=== PATIENT | male | born 1995 | race Caucasian/White ===

== ENCOUNTER 2022-04-09 08:11 | Emergency (ER) | payer SELFPAY ==
[~2022-04-09] VITALS: Ht 175.3 cm; Wt 77.1 kg
[2022-04-09] MEDS ORDERED: ASPIRIN 81 MG CHEW (CHILDREN'S ASA) PO ONE (08:30)
[2022-04-09 08:42] LABS: BASOPHILS % (AUTO) 0 % (0-10); EOSINOPHILS # (AUTO) 0.1 10^3/uL (0.0-0.3); EOSINOPHILS % (AUTO) 1 % (0-10); HEMATOCRIT 43 % (40-54); HEMOGLOBIN 15.4 g/dL (13.3-17.7); LYMPHOCYTES # (AUTO) 1.4 10^3/uL (1.0-4.0); LYMPHOCYTES % (AUTO) 20 % (12-44); MEAN CORPUSCULAR HEMOGLOBIN 33 pg (25-34); MEAN CORPUSCULAR HGB CONC 36 g/dL (32-36); MEAN CORPUSCULAR VOLUME 92 fL (80-99); MEAN PLATELET VOLUME 10.2 fL (9.0-12.2); MONOCYTES # (AUTO) 0.5 10^3/uL (0.0-1.0); MONOCYTES % (AUTO) 8 % (0-12); NEUTROPHILS % (AUTO) 71 % (42-75); PLATELET COUNT 218 10^3/uL (130-400)
--- NOTE | 2022-04-09 08:49 | Diagnostic Imaging Report ---
INDICATION: Chest pain. FINDINGS: The lungs are clear. No failure, effusion, or pneumothorax. IMPRESSION: No acute appearing abnormality. Dictated by: Dictated on workstation # [id number]
[2022-04-09 08:54] LABS: PROTHROMBIN TIME PATIENT 13.4 SEC (12.2-14.7)
--- NOTE | 2022-04-09 08:54 | ED Chest Pain ---
General Chief Complaint: Chest Pain Stated Complaint: CHEST PAINS Source: patient History of Present Illness Date Seen by Provider: Apr 09, 2022 Time Seen by Provider: 08:24 Initial Comments PT WALKS IN ON HIS OWN. 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 NO DIFFERENT TODAY, HAS NOT SOUGHT CARE UNTIL TODAY, SYMPTOMS NO DIFFERENT TODAY HAS NOT TAKEN ANYTHING FOR PAIN HE HAS OCCASIONAL SWEATS WITH THE PAIN NO SHORTNESS OF BREATH NO NAUSEA/VOMITING NO SWELLING IN LEGS/FEET OR PAIN IN CALVES NO FEVER OR RECENT ILLNESS OCCASIONALLY HAS PALPITATIONS WITH THE PAIN, AND SOMETIMES HAS PALPITATIONS WITHOUT PAIN DENIES ANY MEDICAL PROBLEMS, AND DOES NOT TAKE ANY DAILY MEDICATIONS HE DENIES SMOKING OR VAPING, DENIES DRUG USE, OCCASIONAL ETOH USE--LAST USE WAS ON SATURDAY "COUPLE OF BEERS" PT HAS HAD COVID VACCINE X 3, AND FLU VACCINE MULTIPLE SICK CONTACTS WITH FLU AND COVID PCP: NONE Allergies and Home Medications Allergies Coded Allergies: No Known Drug Allergies (Unverified , 04/09/22) Review of Systems Review of Systems Constitutional: see HPI, diaphoresis EENTM: No Symptoms Reported Respiratory: No Symptoms Reported; Denies Shortness of Air Cardiovascular: See HPI, Chest Pain; Denies Edema, Denies Irregular Heart Rate, Denies Lightheadedness; Palpitations; Denies Syncope Gastrointestinal: No Symptoms Reported; Denies Abdominal Pain, Denies Nausea, Denies Vomiting Genitourinary: No Symptoms Reported Musculoskeletal: see HPI, back pain Skin: no symptoms reported Psychiatric/Neurological: No Symptoms Reported Endocrine: No Symptoms Reported Hematologic/Lymphatic: No Symptoms Reported Past Xjjegap-Wvvofu-Kbgnmm Hx Patient Social History Tobacco Use?: No Smoking Status: Never a Smoker Smokeless Tobacco Frequency: Never a User Use of E-Cig and/or Vaping dev: No Use of E-Cig and/or Vaping Gee: Never a User Substance use?: No Alcohol Use?: Yes Alcohol type: Beer Alcohol Frequency: Once in a while Past Medical History Surgeries: No Respiratory: No Cardiac: No Neurological: No Genitourinary: No Gastrointestinal: No Musculoskeletal: No Endocrine: No HEENT: No Cancer: No Psychosocial: No Integumentary: No Blood Disorders: No Physical Exam Vital Signs Vital Signs - First Documented 04/09/22 08:14 Temp 36.4 Pulse 82 Resp 16 B/P (MAP) 137/75 (95) Pulse Ox 100 Capillary Refill : Height, Weight, BMI Height: '" Weight: lbs. oz. kg; BMI Method: General Appearance: No Apparent Distress, WD/WN HEENT: PERRL/EOMI Neck: Normal Inspection Respiratory: Chest Non Tender, Normal Breath Sounds, No Accessory Muscle Use, No Respiratory Distress Cardiovascular: Regular Rate, Rhythm, No Edema, No JVD, No Murmur, Normal Peripheral Pulses Gastrointestinal: Normal Bowel Sounds, No Organomegaly, No Pulsatile Mass, Non Tender, Soft Extremity: Normal Capillary Refill, Normal Inspection, Normal Range of Motion, Non Tender, No Calf Tenderness, No Pedal Edema Neurologic/Psychiatric: Alert, Oriented x3, No Motor/Sensory Deficits, Normal Mood/Affect, information technology consultant II-XII Norm as Tested Skin: Normal Color, Warm/Dry, Tattoos/Piercings (MULTIPLE TATTOOS) Progress/Results/Core Measures Results/Orders Lab Results Laboratory Tests Test 04/09/22 08:37 04/09/22 08:39 Range/Units White Blood Count 7.0 4.3-11.0 10^3/uL Red Blood Count 4.68 4.30-5.52 10^6/uL Hemoglobin 15.4 13.3-17.7 g/dL Hematocrit 43 40-54 % Mean Corpuscular Volume 92 80-99 fL Mean Corpuscular Hemoglobin 33 25-34 pg Mean Corpuscular Hemoglobin Concent 36 32-36 g/dL Red Cell Distribution Width 11.4 10.0-14.5 % Platelet Count 218 130-400 10^3/uL Mean Platelet Volume 10.2 9.0-12.2 fL Immature Granulocyte % (Auto) 0 % Neutrophils (%) (Auto) 71 42-75 % Lymphocytes (%) (Auto) 20 12-44 % Monocytes (%) (Auto) 8 0-12 % Eosinophils (%) (Auto) 1 0-10 % Basophils (%) (Auto) 0 0-10 % Neutrophils # (Auto) 5.0 1.8-7.8 10^3/uL Lymphocytes # (Auto) 1.4 1.0-4.0 10^3/uL Monocytes # (Auto) 0.5 0.0-1.0 10^3/uL Eosinophils # (Auto) 0.1 0.0-0.3 10^3/uL Basophils # (Auto) 0.0 0.0-0.1 10^3/uL Immature Granulocyte # (Auto) 0.0 0.0-0.1 10^3/uL Prothrombin Time 13.4 12.2-14.7 SEC INR Comment 1.0 0.8-1.4 Activated Partial Thromboplast Time 27 24-35 SEC D-Dimer < 0.27 0.00-0.49 UG/ML Sodium Level 140 135-145 MMOL/L Potassium Level 4.0 3.6-5.0 MMOL/L Chloride Level 104 98-107 MMOL/L Carbon Dioxide Level 26 21-32 MMOL/L Anion Gap 10 5-14 MMOL/L Blood Urea Nitrogen 26 H 7-18 MG/DL Creatinine 1.31 H 0.60-1.30 MG/DL Estimat Glomerular Filtration Rate 76 BUN/Creatinine Ratio 20 Glucose Level 103 70-105 MG/DL Calcium Level 9.8 8.5-10.1 MG/DL Corrected Calcium 8.5-10.1 MG/DL Magnesium Level 2.0 1.6-2.4 MG/DL Total Bilirubin 0.8 0.1-1.0 MG/DL Aspartate Amino Transf (AST/SGOT) 17 5-34 U/L Alanine Aminotransferase (ALT/SGPT) 16 0-55 U/L Alkaline Phosphatase 45 40-136 U/L Total Creatine Kinase 163 30-200 U/L Creatine Kinase MB 0.7 <6.6 NG/ML Myoglobin 40.5 10.0-92.0 NG/ML Troponin I < 0.028 <0.028 NG/ML B-Type Natriuretic Peptide < 10.0 <100.0 PG/ML Total Protein 7.8 6.4-8.2 GM/DL Albumin 4.8 H 3.2-4.5 GM/DL Amylase Level 51 25-125 U/L Lipase 26 8-78 U/L Influenza Type A (RT-PCR) Not Detected Not Detecte Influenza Type B (RT-PCR) Not Detected Not Detecte SARS-CoV-2 RNA (RT-PCR) Not Detected Not Detecte My Orders Orders - KEVIN ESQUIVEL DO Ekg Tracing (04/09/22 08:22) Cbc With Automated Diff (04/09/22 08:29) Magnesium (04/09/22 08:29) Chest 1 View, Ap/Pa Only (04/09/22 08:29) Ekg Tracing (04/09/22 08:29) Comprehensive Metabolic Panel (04/09/22 08:29) Myoglobin Serum (04/09/22 08:29) Protime With Inr (04/09/22 08:29) Partial Thromboplastin Time (04/09/22 08:29) O2 (04/09/22 08:29) Monitor-Rhythm Ecg Trace Only (04/09/22 08:29) Ed Iv/Invasive Line Start (04/09/22 08:29) Creatine Kinase (04/09/22 08:29) Creatine Kinase Mb (04/09/22 08:29) Lipase (04/09/22 08:29) Amylase (04/09/22 08:29) Bnp Mccone (04/09/22 08:29) Fibrin Degradation Products (04/09/22 08:29) Troponin I Mccone (04/09/22 08:29) Aspirin Chewable Tablet (Baby Aspirin Ch (04/09/22 08:30) Covid 19 Inhouse Test (04/09/22 08:29) Influenza A And B By Pcr (04/09/22 08:29) Isolation Central Supply Req (04/09/22 08:29) Ct Angio Chest W (R/O Pe) (04/09/22 09:12) Ed Iv/Invasive Line Start (04/09/22 09:13) Lactated Ringers (Lr 1000 Ml Iv Solution (04/09/22 09:15) Medications Given in ED Current Medications Medications Dose Ordered Sig/Carlie Route Start Time Stop Time Status Last Admin Dose Admin Aspirin 324 mg ONCE ONCE PO 04/09/22 08:30 04/09/22 08:31 DC 04/09/22 09:08 324 MG Lactated Ringer's 1,000 ml @ 0 mls/hr Q0M ONCE IV 1/9/23 09:15 04/09/22 09:16 DC 04/09/22 09:28 1,000 MLS/HR Vital Signs/I&O 04/09/22 08:14 Temp 36.4 Pulse 82 Resp 16 B/P (MAP) 137/75 (95) Pulse Ox 100 Progress Progress Note : Progress Note GIVEN ASPIRIN HE DENIES ANY CHEST PAIN AT THIS TIME NO PRIOR VISITS HERE DISCUSSED CT OF CHEST AND INITIALLY WAS AGREEABLE, THEN HE DECLINED, STATING HE DOES NOT WANT IT DONE. REFUSAL PAPERS SIGNED. Initial ECG Impression Date: Apr 09, 2022 Initial ECG Impression Time: 08:30 Initial ECG Rate: 73 Initial ECG Rhythm: Normal Sinus Initial ECG Comparisson: No Previous ECG Available Comment INTERPRETED BY ME Diagnostic Imaging Comments CXR--PER RADIOLOGIST REPORT AT 0856 FINDINGS: The lungs are clear. No failure, effusion, or pneumothorax. IMPRESSION: No acute appearing abnormality. Reviewed: Reviewed by Me CP/AMI: Aspirin, ECG Departure Impression Primary Impression: Chest pain Additional Impression: Palpitations Disposition: 01 HOME, SELF-CARE Condition: Stable Departure-Patient Inst. Decision time for Depature: 09:37 Referrals: NO,LOCAL PHYSICIAN (PCP) Primary Care Physician ANISH SHORT JR, MD Patient Instructions: Palpitations (DC), Chest Pain (DC) Add. Discharge Instructions: TAKE 81 MG ASPIRIN DAILY FOLLOW UP WITH CARDIOLOGY THIS WEEK FOR FURTHER CARE--CALL TODAY TO MAKE AN APPOINTMENT. All discharge instructions reviewed with patient and/or family. Voiced understanding. KEVIN ESQUIVEL DO Apr 09, 2022 08:54
[2022-04-09 08:59] LABS: ALBUMIN 4.8 GM/DL (3.2-4.5); CHLORIDE 104 MMOL/L (98-107); SODIUM 140 MMOL/L (135-145)
[2022-04-09 09:00] LABS: AMYLASE 51 U/L (25-125)
[2022-04-09 09:01] LABS: CALCIUM 9.8 MG/DL (8.5-10.1)
[2022-04-09 09:02] LABS: GLUCOSE 103 MG/DL (70-105); TOTAL PROTEIN 7.8 GM/DL (6.4-8.2)
[2022-04-09 09:03] LABS: CARBON DIOXIDE 26 MMOL/L (21-32)
[2022-04-09 09:04] LABS: BILIRUBIN,TOTAL 0.8 MG/DL (0.1-1.0)
[2022-04-09 09:05] LABS: ALKALINE PHOSPHATASE 45 U/L (40-136); CREATININE SERUM 1.31 MG/DL (0.60-1.30); GFR ESTIMATED 76
[2022-04-09 09:06] LABS: BUN/CREATININE RATIO 20
[2022-04-09 09:08] LABS: ALANINE AMINOTRANSFERASE 16 U/L (0-55)
[2022-04-09 09:09] LABS: CREATINE KINASE 163 U/L (30-200); LIPASE 26 U/L (8-78)
[2022-04-09] MEDS ORDERED: LACTATED RINGERS 1,000 ML IV ONE (09:15)
[2022-04-09 09:16] LABS: CREATINE KINASE MB 0.7 NG/ML (<6.6)
[2022-04-09 09:56] VITALS: BP 124/72
== END 2022-04-09 09:56 | disposition home or self-care (01) ==
LOC: EDUNIT# 08:11 → ER 08:16
DX: R07.89 Other chest pain (principal); R00.2 Palpitations; Z20.822 Contact with and (suspected) exposure to COVID-19
CPT/HCPCS: 36415; 71045; 80053; 82150; 82550; 82553; 83690; 83735; 83874; 83880; 84484; 85025; 85379; 85610; 85730; 87636; 93005; 93041

== ENCOUNTER 2022-12-08 20:12 | Emergency (ER) | payer SELFPAY ==
[~2022-12-08] VITALS: Ht 175 cm; Wt 77.0 kg
[2022-12-08] MEDS ORDERED: LACTATED RINGERS 1,000 ML 1,000 ML IV ONE (20:30)
[2022-12-08] MEDS ORDERED: ACETAMINOPHEN 500 MG TABLET PO ONE (20:30)
[2022-12-08] MEDS ORDERED: CEFEPIME INJECTION 1,000 MG in NS (IVPB) 50 ML 50 ML IV ONE (20:30)
[2022-12-08] MEDS ORDERED: IBUPROFEN 800 MG TABLET PO ONE (20:30)
--- NOTE | 2022-12-08 20:32 | ED General ---
General Chief Complaint: General Problems/Pain Stated Complaint: FLANK PAIN FEVER Source of Information: Patient History of Present Illness Date Seen by Provider: Dec 08, 2022 Time Seen by Provider: 20:23 Initial Comments PT ARRIVES VIA POV FROM HOME C/O BILATERAL FLANK PAIN THAT BEGAN TODAY C/O FEVER--TEMP IS 103 ON ARRIVAL HERE NO HISTORY OF SIMILAR HAS NOT TAKEN ANYTHING FOR PAIN NO CHRONIC MEDICAL PROBLEMS OR DAILY MEDICATIONS. 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 Allergies and Home Medications Allergies Coded Allergies: No Known Drug Allergies (Unverified , 04/09/22) Past Ltjoeko-Thpwix-Hdikbc Hx Patient Social History Tobacco Use?: Yes Tobacco type used: Cigarettes Smoking Status: Current Everyday Smoker Smokeless Tobacco Frequency: Current Everyday User Use of E-Cig and/or Vaping dev: No Substance use?: No Alcohol Use?: Yes Alcohol Frequency: Once in a while Pt feels they are or have been: No Immunizations Up To Date First/Initial COVID19 Vaccinat: unknown Second COVID19 Vaccination Ravi: unknown Third COVID19 Vaccination Date: unknown Past Medical History Surgeries: No Respiratory: No Cardiac: No Neurological: No Genitourinary: No Gastrointestinal: No Musculoskeletal: No Endocrine: No HEENT: No Cancer: No Psychosocial: No Integumentary: No Blood Disorders: No Physical Exam Vital Signs Vital Signs - First Documented 12/08/22 20:18 Temp 39.5 Pulse 111 Resp 20 B/P (MAP) 157/91 (113) Pulse Ox 97 O2 Delivery Room Air Capillary Refill : Height, Weight, BMI Height: '" Weight: lbs. oz. kg; 25.00 BMI Method: Focused Exam Lactate Level 12/08/22 20:53: Lactic Acid Level 1.13 Lactic Acid Level Laboratory Tests Test 12/08/22 20:53 Lactic Acid Level 1.13 MMOL/L (0.50-2.00) Progress/Results/Core Measures Suspected Sepsis SIRS Temperature: Pulse: Respiratory Rate: Laboratory Tests 12/08/22 20:53: White Blood Count 9.3 Blood Pressure / Mean: 12/08/22 20:53: Lactic Acid Level 1.13 Laboratory Tests 12/08/22 20:53: Creatinine 1.26, Platelet Count 193 Results/Orders Lab Results Laboratory Tests Test 12/08/22 20:26 12/08/22 20:53 12/08/22 21:10 Range/Units Urine Color YELLOW Urine Clarity CLEAR Urine pH 6.0 5-9 Urine Specific [place] 1.015 L 1.016-1.022 Urine Protein NEGATIVE NEGATIVE Urine Glucose (UA) NEGATIVE NEGATIVE Urine Ketones NEGATIVE NEGATIVE Urine Nitrite NEGATIVE NEGATIVE Urine Bilirubin NEGATIVE NEGATIVE Urine Urobilinogen 0.2 < = 1.0 MG/DL Urine Leukocyte Esterase TRACE H NEGATIVE Urine RBC (Auto) NEGATIVE NEGATIVE Urine RBC 0-2 /HPF Urine WBC 0-2 /HPF Urine Squamous Epithelial Cells 0-2 /HPF Urine Crystals NONE /LPF Urine Bacteria NEGATIVE /HPF Urine Casts NONE /LPF Urine Mucus SMALL H /LPF Urine Culture Indicated NO White Blood Count 9.3 4.3-11.0 10^3/uL Red Blood Count 4.79 4.30-5.52 10^6/uL Hemoglobin 15.9 13.3-17.7 g/dL Hematocrit 45 40-54 % Mean Corpuscular Volume 93 80-99 fL Mean Corpuscular Hemoglobin 33 25-34 pg Mean Corpuscular Hemoglobin Concent 36 32-36 g/dL Red Cell Distribution Width 11.3 10.0-14.5 % Platelet Count 193 130-400 10^3/uL Mean Platelet Volume 10.7 9.0-12.2 fL Immature Granulocyte % (Auto) 1 % Neutrophils (%) (Auto) 80 H 42-75 % Lymphocytes (%) (Auto) 4 L 12-44 % Monocytes (%) (Auto) 15 H 0-12 % Eosinophils (%) (Auto) 1 0-10 % Basophils (%) (Auto) 0 0-10 % Neutrophils # (Auto) 7.4 1.8-7.8 10^3/uL Lymphocytes # (Auto) 0.3 L 1.0-4.0 10^3/uL Monocytes # (Auto) 1.4 H 0.0-1.0 10^3/uL Eosinophils # (Auto) 0.1 0.0-0.3 10^3/uL Basophils # (Auto) 0.0 0.0-0.1 10^3/uL Immature Granulocyte # (Auto) 0.1 0.0-0.1 10^3/uL Sodium Level 139 135-145 MMOL/L Potassium Level 3.3 L 3.6-5.0 MMOL/L Chloride Level 102 98-107 MMOL/L Carbon Dioxide Level 22 21-32 MMOL/L Anion Gap 15 H 5-14 MMOL/L Blood Urea Nitrogen 15 7-18 MG/DL Creatinine 1.26 0.60-1.30 MG/DL Estimat Glomerular Filtration Rate 79 BUN/Creatinine Ratio 12 Glucose Level 96 70-105 MG/DL Lactic Acid Level 1.13 0.50-2.00 MMOL/L Calcium Level 9.7 8.5-10.1 MG/DL Corrected Calcium 8.5-10.1 MG/DL Magnesium Level 2.0 1.6-2.4 MG/DL Aspartate Amino Transf (AST/SGOT) 18 5-34 U/L Alanine Aminotransferase (ALT/SGPT) 14 0-55 U/L Alkaline Phosphatase 44 40-136 U/L Total Protein 8.0 6.4-8.2 GM/DL Albumin 4.9 H 3.2-4.5 GM/DL Amylase Level 56 25-125 U/L Lipase 24 8-78 U/L Influenza Type A (RT-PCR) Not Detected Not Detecte Influenza Type B (RT-PCR) Not Detected Not Detecte SARS-CoV-2 RNA (RT-PCR) Detected H Not Detecte My Orders Orders - KEVIN ESQUIVEL DO Ed Iv/Invasive Line Start (12/08/22 20:23) Monitor-Rhythm Ecg Trace Only (12/08/22 20:23) Amylase (12/08/22 20:23) Cbc With Automated Diff (12/08/22 20:23) Comprehensive Metabolic Panel (12/08/22 20:23) Lactic Acid Analyzer (12/08/22 20:23) Lipase (12/08/22 20:23) Magnesium (12/08/22 20:23) Ua Culture If Indicated (12/08/22 20:23) Blood Culture (12/08/22 20:23) Ct Abd/Pelvis Wo(Kidney Stone) (12/08/22 20:23) Urine Culture (12/08/22 20:23) Ed Iv/Invasive Line Start (12/08/22 20:23) Vital Signs Adult Sepsis Patie Q15M (12/08/22 20:23) Remove Rings In Anticipation O (12/08/22 20:23) Cefepime Injection (Cefepime Injection) (12/08/22 20:30) Ed Iv/Invasive Line Start (12/08/22 20:23) Lactated Ringers 1,000 Ml (Lactated Ring (12/08/22 20:30) Acetaminophen Tablet (Acetaminophen Ta (12/08/22 20:30) Ibuprofen Tablet (Ibuprofen Tablet) (12/08/22 20:30) Neis Smith Dna Urine Test (12/08/22 20:27) Chlamydia Trachomatis Urine (12/08/22 20:27) Covid 19 Inhouse Test (12/08/22 21:07) Influenza A And B By Pcr (12/08/22 21:07) Manual Differential (12/08/22 20:53) Medications Given in ED Current Medications Medications Dose Ordered Sig/Carlie Route Start Time Stop Time Status Last Admin Dose Admin Acetaminophen 1,000 mg ONCE ONCE PO 12/08/22 20:30 12/08/22 20:31 DC 12/08/22 20:55 1,000 MG Cefepime HCl 1000 mg/Sodium Chloride 50 ml @ 100 mls/hr ONCE ONCE IV 12/08/22 20:30 12/08/22 20:59 DC 12/08/22 20:56 100 MLS/HR Ibuprofen 800 mg ONCE ONCE PO 12/08/22 20:30 12/08/22 20:31 DC 12/08/22 20:55 800 MG Lactated Ringer's 1,000 ml @ 0 mls/hr Q0M ONCE IV 12/08/22 20:30 12/08/22 20:31 DC 12/08/22 20:56 0 MLS/HR Vital Signs/I&O 12/08/22 20:18 Temp 39.5 Pulse 111 Resp 20 B/P (MAP) 157/91 (113) Pulse Ox 97 O2 Delivery Room Air Capillary Refill : Diagnostic Imaging Comments CT ABDOMEN/PELVIS--PER RADIOLOGIST REPORT AT 2120 FINDINGS: Lung bases are clear without pneumonia or edema. There is no pleural or pericardial fluid. The liver demonstrates no focal abnormality. The gallbladder is nondistended without radiodense stones or biliary dilatation. The pancreas is normal. Spleen is normal in size. There is no adrenal mass. The kidneys demonstrate no findings of hydronephrosis or urolithiasis. There is no perinephric fat stranding. Stomach is nondistended. There is no abnormal small or large bowel dilatation. There is moderate stool within the colon. The appendix is normal. There is no free fluid within the pelvis. Urinary bladder wall is thickened. Correlate for the possibility of a urinary tract infection. There is no free air, abscess or adenopathy. There is no focal inflammation in the omentum or mesentery. The aorta is normal in caliber. Alignment of the spine demonstrates an anterolisthesis of L5 on S1 due to L5 pars defect. There is no acute osseous abnormality. IMPRESSION: 1. Thickened urinary bladder which may be due to nondistention or urinary tract infection. No other evidence to suggest acute inflammatory or obstructive process within the abdomen or pelvis. 2. No hydronephrosis or evidence of urolithiasis 3. Moderate stool within the colon without bowel obstruction. 4. No free fluid. 5. Chronic L5 pars defects with a grade 1 anterolisthesis of L5 on S1. Reviewed: Reviewed by Me Departure Impression Primary Impression: COVID-19 virus infection Disposition: HOME, SELF-CARE Condition: Stable Departure-Patient Inst. Decision time for Depature: 21:50 Referrals: NO,LOCAL PHYSICIAN (PCP/Family) Primary Care Physician Patient Instructions: COVID-19 (DC), Preventing the Spread of an Infectious Disease Add. Discharge Instructions: LOTS OF CLEAR LIQUIDS--WATER, BROTH, JELLO, GATORADE DRINK ENOUGH SO YOU ARE URINATING EVERY 2-3 HOURS WHILE AWAKE TYLENOL 1 GRAM PLUS MOTRIN 800 MG 4 TIMES A DAY FOR PAIN OR FEVER OVER THE COUNTER MEDICATIONS FOR COUGH AND CONGESTION IF YOU DEVELOP THOSE SYMPTOMS QUARANTINE FOR THE NEXT 5 DAYS, THEN WEAR MASK AT ALL TIMES FOR AN ADDITIONAL 5 DAYS RETURN TO ER IF SYMPTOMS WORSEN All discharge instructions reviewed with patient and/or family. Voiced understanding. Work/School Note: Work Release Form Date Seen in the Emergency Department: Dec 08, 2022 Return to Work: Dec 13, 2022 Other Restrictions Listed Below: MASK AT ALL TIMES FOR AN ADDITIONAL 5 DAYS , AFTER QUARANTINE FOR 5 DAYS KEVIN ESQUIVEL DO Dec 08, 2022 20:32
[2022-12-08] MEDS ORDERED: CEFEPIME 1 GM/10 ML VIAL ONE (20:38)
[2022-12-08 21:05] LABS: BACTERIA,URINE NEGATIVE /HPF; BILIRUBIN,URINE NEGATIVE (NEGATIVE); CLARITY,URINE CLEAR; COLOR,URINE YELLOW; GLUCOSE, URINE (UA) NEGATIVE (NEGATIVE); KETONES,URINE NEGATIVE (NEGATIVE); LEUKOCYTE ESTERASE ,URINE TRACE (NEGATIVE); NITRITE,URINE NEGATIVE (NEGATIVE); PROTEIN,URINE NEGATIVE (NEGATIVE); RBC,URINE 0-2 /HPF; SQUAMOUS EPITHELIAL CELL,UR 0-2 /HPF; WBC,URINE 0-2 /HPF
[2022-12-08 21:09] LABS: BASOPHILS % (AUTO) 0 % (0-10); EOSINOPHILS # (AUTO) 0.1 10^3/uL (0.0-0.3); EOSINOPHILS % (AUTO) 1 % (0-10); HEMATOCRIT 45 % (40-54); HEMOGLOBIN 15.9 g/dL (13.3-17.7); LYMPHOCYTES # (AUTO) 0.3 10^3/uL (1.0-4.0); LYMPHOCYTES % (AUTO) 4 % (12-44); MEAN CORPUSCULAR HEMOGLOBIN 33 pg (25-34); MEAN CORPUSCULAR HGB CONC 36 g/dL (32-36); MEAN CORPUSCULAR VOLUME 93 fL (80-99); MEAN PLATELET VOLUME 10.7 fL (9.0-12.2); MONOCYTES # (AUTO) 1.4 10^3/uL (0.0-1.0); MONOCYTES % (AUTO) 15 % (0-12); NEUTROPHILS # (AUTO) 7.4 10^3/uL (1.8-7.8); NEUTROPHILS % (AUTO) 80 % (42-75); PLATELET COUNT 193 10^3/uL (130-400); WHITE BLOOD COUNT 9.3 10^3/uL (4.3-11.0)
--- NOTE | 2022-12-08 21:15 | Diagnostic Imaging Report ---
PROCEDURE: CT urinary tract, rule out kidney stone. TECHNIQUE: Multiple contiguous axial images were obtained through the abdomen and pelvis without the use of intravenous contrast. Auto Exposure Controls were utilized during the CT exam to meet ALARA standards for radiation dose reduction. INDICATION: Flank pain. Evaluate for urolithiasis. COMPARISON: No relevant comparison available. FINDINGS: Lung bases are clear without pneumonia or edema. There is no pleural or pericardial fluid. The liver demonstrates no focal abnormality. The gallbladder is nondistended without radiodense stones or biliary dilatation. The pancreas is normal. Spleen is normal in size. There is no adrenal mass. The kidneys demonstrate no findings of hydronephrosis or urolithiasis. There is no perinephric fat stranding. Stomach is nondistended. There is no abnormal small or large bowel dilatation. There is moderate stool within the colon. The appendix is normal. There is no free fluid within the pelvis. Urinary bladder wall is thickened. Correlate for the possibility of a urinary tract infection. There is no free air, abscess or adenopathy. There is no focal inflammation in the omentum or mesentery. The aorta is normal in caliber. Alignment of the spine demonstrates an anterolisthesis of L5 on S1 due to L5 pars defect. There is no acute osseous abnormality. IMPRESSION: 1. Thickened urinary bladder which may be due to nondistention or urinary tract infection. No other evidence to suggest acute inflammatory or obstructive process within the abdomen or pelvis. 2. No hydronephrosis or evidence of urolithiasis 3. Moderate stool within the colon without bowel obstruction. 4. No free fluid. 5. Chronic L5 pars defects with a grade 1 anterolisthesis of L5 on S1. Dictated by: Dictated on workstation # [id number]
[2022-12-08 21:39] LABS: ALBUMIN 4.9 GM/DL (3.2-4.5); CHLORIDE 102 MMOL/L (98-107); POTASSIUM 3.3 MMOL/L (3.6-5.0); SODIUM 139 MMOL/L (135-145)
[2022-12-08 21:40] LABS: CALCIUM 9.7 MG/DL (8.5-10.1)
[2022-12-08 21:41] LABS: AMYLASE 56 U/L (25-125); GLUCOSE 96 MG/DL (70-105)
[2022-12-08 21:42] LABS: CARBON DIOXIDE 22 MMOL/L (21-32)
[2022-12-08 21:45] LABS: ALKALINE PHOSPHATASE 44 U/L (40-136); CREATININE SERUM 1.26 MG/DL (0.60-1.30); GFR ESTIMATED 79
[2022-12-08 21:46] LABS: BUN/CREATININE RATIO 12
[2022-12-08 21:48] LABS: ALANINE AMINOTRANSFERASE 14 U/L (0-55)
[2022-12-08 21:49] LABS: LIPASE 24 U/L (8-78)
[2022-12-08 21:58] VITALS: BP 141/73
[2022-12-08 22:16] LABS: BILIRUBIN,TOTAL 0.4 MG/DL (0.1-1.0)
[2022-12-08 22:17] LABS: EOSINOPHILS % (MANUAL) 1 %; LYMPHOCYTES % (MANUAL) 2 %; MONOCYTES % (MANUAL) 20 %; NEUTROPHILS % (MANUAL) 77 %; PLATELET ESTIMATE ADEQUATE; RBC MORPH NORMAL
== END 2022-12-08 21:58 | disposition home or self-care (01) ==
LOC: EDUNIT# 20:12 → ER 20:16
DX: U07.1 COVID-19 (principal); R50.9 Fever, unspecified; R10.9 Unspecified abdominal pain
CPT/HCPCS: 36415; 74176; 80053; 81000; 82150; 83605; 83690; 83735; 85007; 85027; 87040; 87088; 87491; 87591; 87636